=== PATIENT | male | born 1970 | race Caucasian/White ===

== ENCOUNTER 2018-02-05 09:00 | Emergency (ER) | payer OTHER, MEDICAID ==
[2018-02-05] MEDS: KETOROLAC TROMETHAMINE 10 MG TAB PO (10:14)
[2018-02-05] MEDS: BACLOFEN 10 MG TAB PO (10:14)
== END 2018-02-05 11:16 | disposition home or self-care (01) ==
LOC: M ED 09:00
DX: M54.5 Low back pain (principal); F17.210 Nicotine dependence, cigarettes, uncomplicated
CPT/HCPCS: 99283

== ENCOUNTER 2018-03-15 08:00 | Outpatient (RCR) | payer OTHER ==
[~2018-03-15 08:00] MED LIST: BACL1TAB8 PO; KETO10TAB PO
== END 2018-03-19 ==
LOC: M PT 08:00
PROVIDERS: ATTEND Physician Assistant
DX: M51.36 Other intervertebral disc degeneration, lumbar region (principal)

== ENCOUNTER 2018-04-23 20:33 | Emergency (ER) | payer OTHER ==
[~2018-04-23] VITALS: Ht 170.2 cm; Wt 77.3 kg
[2018-04-23] MEDS ORDERED: AUGM875T28 PO (22:05)
[2018-04-23] MEDS ORDERED: ACET-683 PO (22:05)
[2018-04-23] MEDS ORDERED: IBUP80TA PO (22:05)
[2018-04-23] MEDS ORDERED: ACETAMINOPHEN TAB 650MG DOSE (2X325MG) PO ONE (22:15)
[2018-04-23] MEDS ORDERED: IBUPROFEN 800 MG TAB PO ONE (22:15)
[2018-04-23] MEDS ORDERED: AUGMENTIN 875 MG TAB PO ONE (22:15)
[2018-04-23 22:19] VITALS: BP 126/90
== END 2018-04-23 22:23 | disposition home or self-care (01) ==
LOC: M ED 20:33
DX: K04.7 Periapical abscess without sinus (principal); K02.9 Dental caries, unspecified; F17.200 Nicotine dependence, unspecified, uncomplicated

== ENCOUNTER → 2021-11-27 | Outpatient (REF) | payer OTHER ==
[~2021-11-27] MED LIST changes: +ACET-683 PO; +AUGM875T28 PO; +IBUP80TA PO
[2021-11-27 18:58] LABS: RSV AMPLIFICATION NEGATIVE (NEGATIVE)
== END ==
LOC: M LAB REF 18:09
PROVIDERS: ATTEND Physician Assistant
DX: R52 Pain, unspecified (principal)

== ENCOUNTER 2022-07-06 14:40 | Emergency (ER) | payer OTHER ==
[~2022-07-06] VITALS: Ht 165.1 cm; Wt 82.1 kg
[2022-07-06 14:40] VITALS: BP 123/84
[2022-07-06] MEDS ORDERED: IBUPROFEN 600MG TAB PO ONE (15:35)
[2022-07-06] MEDS ORDERED: IBUP-1022 PO (15:38)
== END 2022-07-06 15:52 | disposition home or self-care (01) ==
LOC: M ED 14:40
DX: S93.402A Sprain of unspecified ligament of left ankle, initial encounter (principal); W10.8XXA Fall (on) (from) other stairs and steps, initial encounter; Y92.019 Unspecified place in single-family (private) house as the place of occurrence of the external cause; Y93.01 Activity, walking, marching and hiking; Y99.8 Other external cause status; F17.200 Nicotine dependence, unspecified, uncomplicated

== ENCOUNTER → 2023-07-23 | Outpatient (CLI) | payer OTHER ==
[~2023-07-23] MED LIST changes: +IBUP-1022 PO
== END ==
LOC: M RAD 09:45
PROVIDERS: ATTEND Student in an Organized Health Care Education/Training Program
DX: M79.674 Pain in right toe(s) (principal)